=== PATIENT | male | born 1960 | race Caucasian/White ===

== ENCOUNTER 2021-07-08 11:59 | Observation (INO) ==
[2021-07-08 12:10] VITALS: BMI 28.6
--- NOTE | 2021-07-08 13:04 | DR.ABDMALE ---
HPI Time seen Time Seen by Provider: 07/08/21 13:00 PCP Primary Care Physician: GALINA GARCIA Complaint Chief Complaint Doctors Comments: 60 y/o male presents with frequent vomitng. Has a h/o gastroparesis over the past 3 years. Started with N/V 2 days ago. Unable to keep even water down. Denies abdominal pain. Has had slight diarrhea. No fever, but is having chills. Denies cough, chest pain, abdominal pain. Went to another ER last pm. Received IV fluids, was d/c'd. Pt not feeling better this am. + persistent vomiting. Feels abdomen sore from vomiting. Pt unable to take his routine meds. Chief Complaint:: PT REPORTS N/V/D , PT HAS HX OF GASTROPORESIS, PT SEEN IN ER AT [facility] IN [place] PT RECIEVED IVFS, AND OLEG ALSO PT REPORTS SORENESS TO HIS ABD, PT REPORTS NOT BEING ABLE TO HOLD ANYTHING , ( 20 TIMES ) . Self Treatment fo Chief Complaint: DANILO DEJESUS COVID-19 Coronavirus risk:travel/contact w/high risk person: No Has patient experienced Coronavirus symptoms: No Reviewed Nurses Notes Review: Yes Source History provided by:: Patient Mode of arrival Mode of Arrival: Ambulatory Timing Onset of Chief Complaint: 07/07/21 Came on: Gradually PMH PMH Past Medical History: Yes Past Medical History: Arthritis, Diabetes and Hypertension Past Surgical History: Yes Surgical History: Cholecystectomy Family History History of Family Medical Conditions: Yes Family Medical History: Cancer and Hypertension Social History Does patient currently use any type of tobacco product: No Have you used tobacco products in the last 12 months: No Type of Tobacco Use: None Does any household member use tobacco: No Alcohol Use: None Do you use any recreational Drugs:: No Lives With: Family Lives Where: Home Travel Risk Coronavirus risk:travel/contact w/high risk person: No Has patient experienced Coronavirus symptoms: No Infectious screening In the last 2 months have you had wt loss of >10#?: NO Have you had fever, night sweats or hemotysis?: No Have you traveled outside the country in the last 6 months?: No Isolation: Standard ROS Review of Systems Constitutional: Malaise, Weakness and Fatigue Eyes: No Symptoms Reported ENTM: No Symptoms Reported Respiratoy: No Symptoms Reported Cardiovascular: No Symptoms Reported Gastrointestinal/Abdominal: Abdominal Pain, Nausea and Vomiting Genitourinary: No Symptoms Reported Neurological: Headache and Weakness Musculoskeletal: No Symptoms Reported Integumentary: No Symptoms Reported Hematologic/Lymphatic: No Symptoms Reported Psychiatric: No Symptoms Reported All Other Systems: Reviewed and Negative PE Vital Signs Vital Signs: Temp Pulse Resp BP BP Pulse Ox 07/08/21 20:15 82 97 07/08/21 20:00 85 160/80 97 07/08/21 19:45 76 96 07/08/21 19:40 83 157/71 95 07/08/21 19:30 80 96 07/08/21 19:20 81 145/65 95 07/08/21 19:15 81 95 07/08/21 19:00 78 147/67 96 07/08/21 18:45 83 95 07/08/21 18:40 85 165/73 94 L 07/08/21 18:30 88 94 L 07/08/21 18:25 20 07/08/21 18:20 91 H 213/98 98 07/08/21 18:15 88 98 07/08/21 18:00 98 H 212/98 100 07/08/21 17:45 96 H 99 07/08/21 17:40 94 H 196/85 100 07/08/21 17:30 89 96 07/08/21 17:20 85 202/95 96 07/08/21 17:15 82 96 07/08/21 17:08 91 H 209/100 94 L 07/08/21 17:00 92 H 97 07/08/21 16:45 86 98 07/08/21 16:30 78 96 07/08/21 16:20 76 160/73 96 07/08/21 16:15 79 96 07/08/21 16:00 79 198/93 93 L 07/08/21 15:45 93 H 99 07/08/21 15:40 89 218/112 99 07/08/21 15:38 22 07/08/21 15:30 88 100 07/08/21 15:28 93 H 224/109 100 07/08/21 15:15 87 99 07/08/21 15:00 92 H 100 07/08/21 14:45 95 H 100 07/08/21 14:41 98 H 99 07/08/21 14:21 78 175/79 98 07/08/21 14:15 79 98 07/08/21 14:01 82 193/90 96 07/08/21 14:00 84 96 07/08/21 13:45 82 93 L 07/08/21 13:40 81 213/103 98 07/08/21 13:30 81 96 07/08/21 13:27 85 212/99 94 L 07/08/21 13:16 84 222/127 98 07/08/21 12:01 97.6 F 93 H 20 165/90 97 03/28/16 10:17 156/80 General Limitations: No Limitations General Appearance: Alert and In Distress Head Head Exam: Normal Inspection, Atraumatic and Normocephalic Eyes Eye exam: Normal Appearance, PERRL and EOMI ENT ENT Exam: Normal Exam and Mucous Membranes Moist Neck Neck Exam: Normal Inspection and Full ROM; negative Tenderness Chest Chest Inspection: Normal Inspection Respiratory Respiratory Exam: Normal Lung Sounds Bilat; negative Accessory Muscle Use and Re spiratory Distress Respiratory Exam: Bilateral: Clear to Auscultation Cardiovascular Cardiovascular Exam: Regular Rate, Normal Rhythm and Normal Heart Sounds Abdominal Exam Abdominal Exam: Normal Inspection, Normal Bowel Sounds, Soft and Tenderness (across upper abdomen, no guarding or rebound. ) Back Back Exam: Normal Inspection Extremeties Extremities Exam: Normal Inspection and Full ROM; negative Tenderness and Edema Neurologic Neurological Exam: Alert, Oriented X3 and CN II-XII Intact; negative Motor Sensory Deficit Psychiatric Psychiatric Exam: Normal Affect Skin Skin Exam: Warm and Dry MDM Differential Diagnosis Differential Diagnosis: Gastritus/PUD, Gastroenteritis and Pancreatitis Other differential diagnosis: gastroparesis COURSE Treatment Treatment: 60 y/o male presents with intractable vomiting. Has a h/o gastroparesis over te past few years. W/u initiated. Pt given IV fluids, IV zofran/protonix. Labs overall acceptable. CT of the abd/pelvis obtained, with IV contrast. No acute abdominal abnormalities. Pt with persistent nausea, worsening headache. Given adidtional IV meds. Pt's BP increasing, given IV hydralazine, after no help with IV labetalol. 1914 - nausea not as bad, still with headache. Given IV dilaudid with good repsponse of BP. Recommend observation admission in view of his nausea, vomitng and difficult to control BP. Discussed with the covering hospitalist, Dr Chopra. ROR Labs Reviewed Laboratory Results Reviewed?: Yes Result Diagrams: 07/08/21 13:19 07/08/21 13:19 Laboratory: WBC 10.0 X10^3/uL (3.6-10.0) 07/08/21 13:19 RBC 4.64 X10^6/uL (4.7-6.0) L 07/08/21 13:19 Hgb 14.1 g/dL (13.5-18.0) 07/08/21 13:19 Hct 40.4 % (42.0-54.0) L 07/08/21 13:19 MCV 87.1 fL (80.0-100.0) 07/08/21 13:19 MCH 30.4 pg (27.0-34.0) 07/08/21 13:19 MCHC 34.9 g/dL (33.0-35.0) 07/08/21 13:19 RDW 13.5 % (11.6-16.5) 07/08/21 13:19 Plt Count 165 X10^3/uL (150.0-450.0) 07/08/21 13:19 MPV 7.5 fL (7.4-11.0) 07/08/21 13:19 Neut % (Auto) 83.7 % (42.0-75.0) H 07/08/21 13:19 Lymph % (Auto) 8.8 % (21.0-51.0) L 07/08/21 13:19 [place] % (Auto) 7.0 % (0.0-13.0) 07/08/21 13:19 Eos % (Auto) 0.1 % (0.9-2.9) L 07/08/21 13:19 Baso % (Auto) 0.4 % (0.2-1.0) 07/08/21 13:19 Neut # (Auto) 8.4 x10^3/uL (2.2-4.8) H 07/08/21 13:19 Lymph # (Auto) 0.9 X10^3/uL (1.3-2.9) L 07/08/21 13:19 [place] # (Auto) 0.7 x10^3/uL (0.3-0.8) 07/08/21 13:19 Eos # (Auto) 0.0 x10^3/uL (0.0-0.2) 07/08/21 13:19 Baso # (Auto) 0.0 X10^3/uL (0.0-0.1) 07/08/21 13:19 Absolute Nucleated RBC 0.0 /100WBC 07/08/21 13:19 Sodium 139 mmol/L (136-145) 07/08/21 13:19 Corrected Sodium 143 mmol/L (136-145) 07/08/21 13:19 Potassium 3.5 mmol/L (3.5-5.1) 07/08/21 13:19 Chloride 100 mmol/L (98-107) 07/08/21 13:19 Carbon Dioxide 27.7 mmol/L (21-32) 07/08/21 13:19 BUN 17 mg/dL (7-18) 07/08/21 13:19 Creatinine 1.22 mg/dL (0.70-1.30) 07/08/21 13:19 Est GFR (MDRD) Af Amer > 60 (>60) 07/08/21 13:19 Est GFR (MDRD) Non-Af > 60 (>60) 07/08/21 13:19 Glucose 257 mg/dL (65-99) H 07/08/21 13:19 Calcium 8.4 mg/dL (8.5-10.1) L 07/08/21 13:19 Corrected Calcium TNP 07/08/21 13:19 Total Bilirubin 0.90 mg/dL (0.2-1.0) 07/08/21 13:19 AST 25 Units/L (15-37) 07/08/21 13:19 ALT 23 Units/L (12-78) 07/08/21 13:19 Alkaline Phosphatase 52 Units/L (46-116) 07/08/21 13:19 Total Protein 7.9 g/dL (6.4-8.2) 07/08/21 13:19 Albumin 4.3 g/dL (3.4-5.0) 07/08/21 13:19 Globulin 3.6 g/dL (2.5-4.5) 07/08/21 13:19 Albumin/Globulin Ratio 1.2 Ratio (1.1-2.1) 07/08/21 13:19 Lipase 45 Units/L (73-393) L 07/08/21 13:19 Specimen Type Random urine 07/08/21 15:37 Urine Color Yellow (YELLOW) 07/08/21 15:37 Urine Appearance Clear (CLEAR) 07/08/21 15:37 Urine pH 6.0 (5.0 - 8.0) 07/08/21 15:37 Ur Specific [place] 1.015 (1.000-1.030) 07/08/21 15:37 Urine Protein 3+ (NEGATIVE) 07/08/21 15:37 Urine Glucose (UA) 4+ (NEGATIVE) 07/08/21 15:37 Urine Ketones 2+ (NEGATIVE) 07/08/21 15:37 Urine Occult Blood 4+ (NEGATIVE) 07/08/21 15:37 Urine Nitrite Negative (NEGATIVE) 07/08/21 15:37 Urine Bilirubin Negative (NEGATIVE) 07/08/21 15:37 Urine Urobilinogen Normal (NORMAL) 07/08/21 15:37 Ur Leukocyte Esterase Negative (NEGATIVE) 07/08/21 15:37 Urine RBC 0-2 /HPF (0-3) 07/08/21 15:37 Urine WBC 0-2 /HPF (0-5) 07/08/21 15:37 Ur Squamous Epith Cells Negative /HPF (NEGATIVE) 07/08/21 15:37 Urine Bacteria Negative /HPF (NEGATIVE) 07/08/21 15:37 Ur Culture Indicated? No/not indicated 07/08/21 15:37 SARS CoV-2 RNA Rapid CHANCE Negative (NEGATIVE) 07/08/21 15:49 Other Results Comments: Labs overall acceptable. XRAY XRAY Interpreted by: Radiologist X-ray Results: CT of abd/pelvis without acute abnormalities. Opioid Opioid Risk Tool Age (Good box if 16-45): No History of Preadolescent Sexual Abuse: No Total: 0 Total Score Risk Category: Low Risk Copyright: Didier LAY predicting aberrant behaviors Diagnosis Discharge Problem: Intractable vomiting Hypertension Qualifiers: Hypertension type: unspecified Qualified Code(s): I10 - Essential (primary) hypertension
[2021-07-08] MEDS ORDERED: ZOFRAN INJ 4 MG VIAL IVP ONE ×2 (13:15→15:26)
[2021-07-08] MEDS ORDERED: NS 1,000 ML IV 1,000 ML IV ONE ×2 (13:15→16:19)
[2021-07-08] MEDS ORDERED: PROTONIX INJ 40 MG VIAL IVP ONE (13:15)
[2021-07-08] MEDS ORDERED: PROTONIX INJ 40 MG VIAL ONE (13:18)
[2021-07-08] MEDS ORDERED: NS 1,000 ML IV 1,000 ML ONE (13:19)
[2021-07-08] MEDS ORDERED: ZOFRAN INJ 4 MG VIAL ONE ×2 (13:19→15:32)
[2021-07-08] MEDS ORDERED: NORMODYNE INJ 20 MG VIAL IVP ONE (13:21)
[2021-07-08] MEDS ORDERED: NORMODYNE INJ 20 MG VIAL ONE (13:24)
[2021-07-08 13:26] LABS: BASOPHILS % (AUTO) 0.4 % (0.2-1.0); EOSINOPHILS % (AUTO) 0.1 % (0.9-2.9); HEMATOCRIT 40.4 % (42.0-54.0); HEMOGLOBIN 14.1 g/dL (13.5-18.0); LYMPHOCYTES # (AUTO) 0.9 X10^3/uL (1.3-2.9); LYMPHOCYTES % (AUTO) 8.8 % (21.0-51.0); MEAN CORPUSCULAR HEMOGLOBIN 30.4 pg (27.0-34.0); MEAN CORPUSCULAR HGB CONC 34.9 g/dL (33.0-35.0); MEAN CORPUSCULAR VOLUME 87.1 fL (80.0-100.0); MEAN PLATELET VOLUME 7.5 fL (7.4-11.0); MONOCYTES # (AUTO) 0.7 x10^3/uL (0.3-0.8); NEUTROPHILS # (AUTO) 8.4 x10^3/uL (2.2-4.8); NEUTROPHILS % (AUTO) 83.7 % (42.0-75.0); RED BLOOD COUNT 4.64 X10^6/uL (4.7-6.0); RED CELL DISTRIBUTION WIDTH 13.5 % (11.6-16.5)
[2021-07-08 13:37] LABS: ALANINE AMINOTRANSFERASE 23 Units/L (12-78); ALBUMIN 4.3 g/dL (3.4-5.0); ALKALINE PHOSPHATASE 52 Units/L (46-116); ASPARTATE AMINO TRANSFERASE 25 Units/L (15-37); BLOOD UREA NITROGEN 17 mg/dL (7-18); CALCIUM 8.4 mg/dL (8.5-10.1); CARBON DIOXIDE 27.7 mmol/L (21-32); CHLORIDE 100 mmol/L (98-107); COR NA(FOR HYPERGLY) 143 mmol/L (136-145); CREATININE 1.22 mg/dL (0.70-1.30); LIPASE 45 Units/L (73-393); SODIUM 139 mmol/L (136-145); TOTAL PROTEIN 7.9 g/dL (6.4-8.2); eGFR NON BLACK RACES > 60 (>60)
--- NOTE | 2021-07-08 15:23 | CT ---
HISTORYABDOMINAL PAIN, VOMITING, IV CONTRAST ONLYSTUDYABDOMEN/PELVIS WITH CONCOMPARISONNoneTECHNIQUEAxial CT images of the abdomen and pelvis were obtained after the administration of IV contrast, 100 mL Omnipaque 350, and reformatted into coronal and sagittal planes for further evaluation.Radiation dose: 729.90 mGy-cm total DLPFINDINGSLung bases are clear.Stomach appears normal.Solid visceral organs of the upper abdomen are unremarkable.Status post cholecystectomy.Nonobstructing lower pole right nephrolith.Otherwise, unremarkable appearance of the kidneys and ureters.Unremarkable appearance of the urinary bladder.Imaged reproductive structures are unremarkable.Unremarkable appearance of the large and small bowel.No evidence of acute appendicitis.No pneumoperitoneum.No significant fluid collection.No adenopathy.No acute osseous abnormality.IMPRESSION1. No acute intra-abdominal abnormality detected.2. Nonobstructing right nephrolith.Electronically signed by: Darrel Nunez (Jul 08, 2021 15:22:28)
[2021-07-08] MEDS ORDERED: MORPHINE SULFATE INJ 4 MG IVP ONE (15:26)
[2021-07-08] MEDS ORDERED: MORPHINE SULFATE INJ 4 MG ONE (15:32)
[2021-07-08 16:07] LABS: BILIRUBIN,URINE NEGATIVE (NEGATIVE); BLOOD/HEMOGLOBIN,URINE 4+ (NEGATIVE); GLUCOSE, URINE 4+ (NEGATIVE); KETONES,URINE 2+ (NEGATIVE); LEUKOCYTE ESTERASE ,URINE NEGATIVE (NEGATIVE); NITRITES,URINE NEGATIVE (NEGATIVE); PROTEIN,URINE 3+ (NEGATIVE); UROBILINOGEN,URINE NORMAL (NORMAL)
[2021-07-08 16:24] LABS: APPEARANCE,URINE CLEAR (CLEAR); COLOR,URINE YELLOW (YELLOW); RBC,URINE 0-2 /HPF (0-3)
[2021-07-08 16:25] LABS: BACTERIA,URINE NEGATIVE /HPF (NEGATIVE); SQUAMOUS EPITHELIAL CELL,UR NEGATIVE /HPF (NEGATIVE)
[2021-07-08] MEDS ORDERED: APRESOLINE INJ 20 MG VIAL IVP ONE (17:12)
[2021-07-08] MEDS ORDERED: APRESOLINE INJ 20 MG VIAL ONE (17:25)
[2021-07-08] MEDS ORDERED: DILAUDID INJ IVP ONE (18:08)
[2021-07-08] MEDS ORDERED: DILAUDID INJ ONE (18:20)
[2021-07-08] MEDS: LOPRESSOR TAB 25 MG PO SCH (21:48)
[2021-07-08] MEDS: NS 1,000 ML IV 1,000 ML IV SCH (21:48)
[2021-07-08] MEDS: ZOFRAN INJ 4 MG VIAL IVP PRN (21:50)
[2021-07-08] MEDS: DILAUDID INJ IVP PRN (21:56)
[2021-07-09] MEDS: PHENERGAN INJ 25 MG IM PRN ×4 (01:33→22:32)
[2021-07-09] MEDS: DILAUDID INJ IVP PRN ×4 (02:25→20:11)
[2021-07-09] MEDS: ZOFRAN INJ 4 MG VIAL IVP PRN (04:21)
[2021-07-09 06:49] LABS: BASOPHILS % (AUTO) 0.4 % (0.2-1.0); HEMATOCRIT 40.2 % (42.0-54.0); HEMOGLOBIN 14.3 g/dL (13.5-18.0); LYMPHOCYTES # (AUTO) 1.4 X10^3/uL (1.3-2.9); LYMPHOCYTES % (AUTO) 12.6 % (21.0-51.0); MEAN CORPUSCULAR HEMOGLOBIN 30.7 pg (27.0-34.0); MEAN CORPUSCULAR HGB CONC 35.5 g/dL (33.0-35.0); MEAN CORPUSCULAR VOLUME 86.4 fL (80.0-100.0); MEAN PLATELET VOLUME 7.5 fL (7.4-11.0); MONOCYTES # (AUTO) 0.7 x10^3/uL (0.3-0.8); MONOCYTES % (AUTO) 6.7 % (0.0-13.0); NEUTROPHILS # (AUTO) 8.6 x10^3/uL (2.2-4.8); NEUTROPHILS % (AUTO) 80.3 % (42.0-75.0); RED BLOOD COUNT 4.65 X10^6/uL (4.7-6.0); RED CELL DISTRIBUTION WIDTH 13.5 % (11.6-16.5); WHITE BLOOD COUNT 10.8 X10^3/uL (3.6-10.0)
[2021-07-09 07:13] LABS: ALANINE AMINOTRANSFERASE 24 Units/L (12-78); ALKALINE PHOSPHATASE 49 Units/L (46-116); ASPARTATE AMINO TRANSFERASE 31 Units/L (15-37); BLOOD UREA NITROGEN 13 mg/dL (7-18); CALCIUM 8.4 mg/dL (8.5-10.1); CARBON DIOXIDE 25.5 mmol/L (21-32); CHLORIDE 102 mmol/L (98-107); COR NA(FOR HYPERGLY) 140 mmol/L (136-145); CREATININE 0.97 mg/dL (0.70-1.30); MAGNESIUM 2.1 mg/dL (1.7-2.9); SODIUM 138 mmol/L (136-145); TOTAL PROTEIN 7.5 g/dL (6.4-8.2); eGFR NON BLACK RACES > 60 (>60)
[2021-07-09] MEDS: NORVASC TAB 10 MG PO SCH (08:20)
[2021-07-09] MEDS: CATAPRES TAB 0.2 MG PO SCH (08:21)
[2021-07-09] MEDS: LOPRESSOR TAB 25 MG PO SCH ×2 (08:21→20:32)
[2021-07-09] MEDS ORDERED: PROTONIX TAB 40 MG PO SCH (09:00)
[2021-07-09] MEDS: NS 1,000 ML IV 1,000 ML IV SCH ×3 (09:54→23:22)
--- NOTE | 2021-07-09 16:32 | DR.H&P ---
H&P - History & Physical for Day of: H&P Date: 07/08/21 - Chief Complaint Chief Complaint: N/V abdominal pain - History of Present Illness History of Present Illness: Patient is a 60 year old WM who is being admitted due to gastroparesis. Patient reports a PMH of gastroparesis; states he follows up with Dr. Landa in [place] (GI) regarding gastroparesis. States he went to [place] ER 2 days ago with similar issues and was discharged home however reports no improvement in symptoms. PMH DM, HTN, gastroparesis. PCP in [place] - Past Medical History Past Medical History: Hypertension, Diabetes, Arthritis - Past Surgical History Surgical History: Cholecystectomy - Family History Family Medical History: Diabetes Mellitus, Cancer, Hypertension - Social History Does patient currently use any type of tobacco product: No Have you used tobacco products in the last 12 months: No Type of Tobacco Use: None Does any household member use tobacco: No Alcohol Use: None Drug Use: None - Medications Home Medications: No Known Drug Allergies Allergy (Verified 07/08/21 14:33) CONTINUE taking the following medications amlodipine 10 mg PO DAILY 07/08/21 [History] clonidine HCl 0.2 mg PO DAILY 07/08/21 [History] insulin glargine [Lantus Solostar U-100 Insulin] 20 unit SUBCUT HS 07/08/21 [History] lactobacillus combination no.8 [Adult Probiotic] 3 cell PO DAILY 07/08/21 [History] magnesium oxide [MagOx] 400 mg PO BID 07/08/21 [History] metoclopramide HCl [Gimoti] 15 mg INTRANASAL PRN PRN 07/08/21 [History] metoprolol tartrate 25 mg PO BID 07/08/21 [History] ondansetron HCl [Zofran] 4 mg PO TID PRN 07/08/21 [History] pantoprazole 40 mg PO DAILY 07/08/21 [History] potassium chloride 20 meq PO DAILY 07/08/21 [History] - Review of Systems Constitutional: See HPI Eyes: See HPI ENT: See HPI Respiratory: See HPI Cardiovascular: See HPI Gastrointestinal: See HPI Genitourinary: See HPI Musculoskeletal: See HPI Skin: See HPI Neurological: See HPI - Physical Exam Vital Signs: Temperature 99.9 F Pulse Rate [Brachial] 73 Pulse Rate 80 Respiratory Rate 20 Blood Pressure [Left Arm] 139/75 Blood Pressure 156/75 O2 Sat by Pulse Oximetry 95 Oriented: Normal, Time, Person, Place Eyes: Normal Ear: Normal Nose: Normal Throat: Normal Respiratory: Clear Throughout Cardiovascular: Normal : Normal Auscultation: Bowel Sounds: Normal Palpation: Normal Tenderness: Diffuse, Moderate Skin: Normal Musculoskeletal: Normal Psychiatric: Normal Mood Description: Calm Affect: Normal Speech Pattern: Clear, Appropriate - Assessment/Plan (1) Gastroparesis Status: Acute Plan: Admit. IV hydration. IV protonix. Repeat labs in am. NPO (2) Hypokalemia Status: Acute (3) Abdominal pain Status: Acute (4) Intractable vomiting Status: Acute (5) Hypertension Qualifiers: Hypertension type: unspecified Qualified Code(s): I10 - Essential (primary) hypertension Status: Acute - Allergies Allergies/Adverse Reactions: Allergies Allergy/AdvReac Type Severity Reaction Status Date / Time No Known Drug Allergies Allergy Verified 07/08/21 14:33
--- NOTE | 2021-07-09 16:33 | PCM.PROG ---
Progress Note - Subjective Subjective: Patient was admitted due to acute gastroparesis. Patient reports minimal improvement in symptoms. States he has vomitted once today. Reports pain improved. No other concerns at present. - Past Medical Family Social History Past Med/Fam/Surg Hx: No changes since H&P Allergies: Allergies No Known Drug Allergies Allergy (Verified 07/08/21 14:33) - Review of Systems ROS: No change since H&P - Vital Signs and I&O's Vital Signs: Temperature 99.9 F Pulse Rate [Brachial] 73 Pulse Rate 80 Respiratory Rate 20 Blood Pressure [Left Arm] 139/75 Blood Pressure 156/75 O2 Sat by Pulse Oximetry 95 Intake and Output: Intake & Output 07/06/21 07/07/21 07/08/21 07/09/21 23:59 23:59 23:59 23:59 Intake Total 300 / 300 438 / 438 Output Total 700 / 700 200 / 200 Balance -400 / -400 238 / 238 - Physical Exam Oriented: Normal, Time, Person, Place Eyes: Normal Ear: Normal Nose: Normal Throat: Normal Respiratory: Normal Cardiovascular: Normal : Normal Auscultation: Bowel Sounds: Normal Palpation: Normal Tenderness: Diffuse, Moderate Skin: Normal Musculoskeletal: Normal Psychiatric: Normal Mood Description: Calm Affect: Normal Speech Pattern: Clear, Appropriate - Laboratory and Diagnostics Result Diagrams: 07/09/21 06:25 07/09/21 06:25 Labs: Laboratory WBC 10.8 X10^3/uL (3.6-10.0) H 07/09/21 06:25 RBC 4.65 X10^6/uL (4.7-6.0) L 07/09/21 06:25 Hgb 14.3 g/dL (13.5-18.0) 07/09/21 06:25 Hct 40.2 % (42.0-54.0) L 07/09/21 06:25 MCV 86.4 fL (80.0-100.0) 07/09/21 06:25 MCH 30.7 pg (27.0-34.0) 07/09/21 06:25 MCHC 35.5 g/dL (33.0-35.0) H 07/09/21 06:25 RDW 13.5 % (11.6-16.5) 07/09/21 06:25 Plt Count 175 X10^3/uL (150.0-450.0) 07/09/21 06:25 MPV 7.5 fL (7.4-11.0) 07/09/21 06:25 Neut % (Auto) 80.3 % (42.0-75.0) H 07/09/21 06:25 Lymph % (Auto) 12.6 % (21.0-51.0) L 07/09/21 06:25 [place] % (Auto) 6.7 % (0.0-13.0) 07/09/21 06:25 Eos % (Auto) 0.0 % (0.9-2.9) L 07/09/21 06:25 Baso % (Auto) 0.4 % (0.2-1.0) 07/09/21 06:25 Neut # (Auto) 8.6 x10^3/uL (2.2-4.8) H 07/09/21 06:25 Lymph # (Auto) 1.4 X10^3/uL (1.3-2.9) 07/09/21 06:25 [place] # (Auto) 0.7 x10^3/uL (0.3-0.8) 07/09/21 06:25 Eos # (Auto) 0.0 x10^3/uL (0.0-0.2) 07/09/21 06:25 Baso # (Auto) 0.0 X10^3/uL (0.0-0.1) 07/09/21 06:25 Absolute Nucleated RBC 0.0 /100WBC 07/09/21 06:25 Sodium 138 mmol/L (136-145) 07/09/21 06:25 Corrected Sodium 140 mmol/L (136-145) 07/09/21 06:25 Potassium 3.7 mmol/L (3.5-5.1) 07/09/21 06:25 Chloride 102 mmol/L (98-107) 07/09/21 06:25 Carbon Dioxide 25.5 mmol/L (21-32) 07/09/21 06:25 BUN 13 mg/dL (7-18) 07/09/21 06:25 Creatinine 0.97 mg/dL (0.70-1.30) 07/09/21 06:25 Est GFR (MDRD) Af Amer > 60 (>60) 07/09/21 06:25 Est GFR (MDRD) Non-Af > 60 (>60) 07/09/21 06:25 Glucose 196 mg/dL (65-99) H 07/09/21 06:25 POC Glucose (mg/dL) 175 mg/dL (65-99) H 07/09/21 15:55 Calcium 8.4 mg/dL (8.5-10.1) L 07/09/21 06:25 Corrected Calcium TNP 07/09/21 06:25 Magnesium 2.1 mg/dL (1.7-2.9) 07/09/21 06:25 Total Bilirubin 0.70 mg/dL (0.2-1.0) 07/09/21 06:25 AST 31 Units/L (15-37) 07/09/21 06:25 ALT 24 Units/L (12-78) 07/09/21 06:25 Alkaline Phosphatase 49 Units/L (46-116) 07/09/21 06:25 Total Protein 7.5 g/dL (6.4-8.2) 07/09/21 06:25 Albumin 4.0 g/dL (3.4-5.0) 07/09/21 06:25 Globulin 3.5 g/dL (2.5-4.5) 07/09/21 06:25 Albumin/Globulin Ratio 1.1 Ratio (1.1-2.1) 07/09/21 06:25 Lipase 45 Units/L (73-393) L 07/08/21 13:19 Specimen Type Random urine 07/08/21 15:37 Urine Color Yellow (YELLOW) 07/08/21 15:37 Urine Appearance Clear (CLEAR) 07/08/21 15:37 Urine pH 6.0 (5.0 - 8.0) 07/08/21 15:37 Ur Specific [place] 1.015 (1.000-1.030) 07/08/21 15:37 Urine Protein 3+ (NEGATIVE) 07/08/21 15:37 Urine Glucose (UA) 4+ (NEGATIVE) 07/08/21 15:37 Urine Ketones 2+ (NEGATIVE) 07/08/21 15:37 Urine Occult Blood 4+ (NEGATIVE) 07/08/21 15:37 Urine Nitrite Negative (NEGATIVE) 07/08/21 15:37 Urine Bilirubin Negative (NEGATIVE) 07/08/21 15:37 Urine Urobilinogen Normal (NORMAL) 07/08/21 15:37 Ur Leukocyte Esterase Negative (NEGATIVE) 07/08/21 15:37 Urine RBC 0-2 /HPF (0-3) 07/08/21 15:37 Urine WBC 0-2 /HPF (0-5) 07/08/21 15:37 Ur Squamous Epith Cells Negative /HPF (NEGATIVE) 07/08/21 15:37 Urine Bacteria Negative /HPF (NEGATIVE) 07/08/21 15:37 Ur Culture Indicated? No/not indicated 07/08/21 15:37 SARS CoV-2 RNA Rapid CHANCE Negative (NEGATIVE) 07/08/21 15:49 - Plan (1) Gastroparesis Status: Acute Plan: Admit. IV hydration. IV protonix. Repeat labs in am. Clear liquids (2) Hypokalemia Status: Acute (3) Abdominal pain Status: Acute (4) Intractable vomiting Status: Acute (5) Hypertension Status: Acute Qualifiers: Hypertension type: unspecified Qualified Code(s): I10 - Essential (primary) hypertension
[2021-07-10] MEDS: PHENERGAN INJ 25 MG IM PRN ×3 (04:09→16:00)
[2021-07-10] MEDS: DILAUDID INJ IVP PRN ×3 (04:12→21:15)
[2021-07-10 06:53] LABS: BASOPHILS % (AUTO) 0.3 % (0.2-1.0); EOSINOPHILS % (AUTO) 0.4 % (0.9-2.9); HEMATOCRIT 41.4 % (42.0-54.0); HEMOGLOBIN 14.4 g/dL (13.5-18.0); LYMPHOCYTES # (AUTO) 1.1 X10^3/uL (1.3-2.9); LYMPHOCYTES % (AUTO) 12.2 % (21.0-51.0); MEAN CORPUSCULAR HEMOGLOBIN 30.5 pg (27.0-34.0); MEAN CORPUSCULAR HGB CONC 34.9 g/dL (33.0-35.0); MEAN CORPUSCULAR VOLUME 87.5 fL (80.0-100.0); MEAN PLATELET VOLUME 7.9 fL (7.4-11.0); MONOCYTES # (AUTO) 0.6 x10^3/uL (0.3-0.8); MONOCYTES % (AUTO) 6.7 % (0.0-13.0); NEUTROPHILS # (AUTO) 7.1 x10^3/uL (2.2-4.8); NEUTROPHILS % (AUTO) 80.4 % (42.0-75.0); RED BLOOD COUNT 4.73 X10^6/uL (4.7-6.0); RED CELL DISTRIBUTION WIDTH 13.3 % (11.6-16.5); WHITE BLOOD COUNT 8.8 X10^3/uL (3.6-10.0)
[2021-07-10 07:16] LABS: ALANINE AMINOTRANSFERASE 22 Units/L (12-78); ALKALINE PHOSPHATASE 53 Units/L (46-116); AMYLASE 21 Units/L (25-115); ASPARTATE AMINO TRANSFERASE 26 Units/L (15-37); BLOOD UREA NITROGEN 16 mg/dL (7-18); CALCIUM 8.2 mg/dL (8.5-10.1); CHLORIDE 101 mmol/L (98-107); COR NA(FOR HYPERGLY) 140 mmol/L (136-145); CREATININE 0.94 mg/dL (0.70-1.30); LIPASE 54 Units/L (73-393); SODIUM 138 mmol/L (136-145); TOTAL PROTEIN 7.5 g/dL (6.4-8.2); eGFR NON BLACK RACES > 60 (>60)
[2021-07-10] MEDS: ZOFRAN INJ 4 MG VIAL IVP PRN (07:30)
[2021-07-10] MEDS ORDERED: PROTONIX INJ 40 MG VIAL IVP SCH (09:00)
[2021-07-10] MEDS: NORVASC TAB 10 MG PO SCH (09:23)
[2021-07-10] MEDS: LOPRESSOR TAB 25 MG PO SCH ×2 (09:24→21:15)
[2021-07-10] MEDS: CATAPRES TAB 0.2 MG PO SCH (09:24)
[2021-07-10] MEDS: NS 1,000 ML IV 1,000 ML IV SCH ×2 (09:26→11:38)
[2021-07-10] MEDS: REGLAN INJ 10 MG VIAL IVP SCH ×2 (16:00→21:13)
[2021-07-10] MEDS: PROTONIX INJ 40 MG VIAL IVP SCH (21:14)
[2021-07-10] MEDS ORDERED: POTASSIUM CHLORIDE LIQ 20 MEQ UDC PO PRN (22:08)
[2021-07-10] MEDS ORDERED: POTASSIUM CHL 40 MEQ/NS 0.45% 500 ML IV PRN (22:08)
[2021-07-10] MEDS ORDERED: POTASSIUM CHL 60 MEQ/NS 0.45% 500 ML IV PRN (22:08)
[2021-07-10] MEDS ORDERED: KLOR-CON PO PRN (22:08)
[2021-07-10] MEDS ORDERED: K-DUR TAB 20 MEQ PO PRN (22:08)
[2021-07-10] MEDS ORDERED: MICRO K EXTEN CAP 10 MEQ PO PRN (22:08)
[2021-07-10] MEDS ORDERED: K-RIDER 10 MEQ/NS 100 ML 10 MEQ/100 ML BAG IV PRN (22:08)
[2021-07-11] MEDS: REGLAN INJ 10 MG VIAL IVP SCH ×3 (00:32→11:06)
[2021-07-11] MEDS: NS 1,000 ML IV 1,000 ML IV SCH ×3 (00:39→13:28)
[2021-07-11 06:59] LABS: BASOPHILS % (AUTO) 0.3 % (0.2-1.0); EOSINOPHILS # (AUTO) 0.1 x10^3/uL (0.0-0.2); EOSINOPHILS % (AUTO) 0.8 % (0.9-2.9); HEMATOCRIT 39.7 % (42.0-54.0); HEMOGLOBIN 13.7 g/dL (13.5-18.0); LYMPHOCYTES # (AUTO) 1.4 X10^3/uL (1.3-2.9); LYMPHOCYTES % (AUTO) 19.3 % (21.0-51.0); MEAN CORPUSCULAR HEMOGLOBIN 30.3 pg (27.0-34.0); MEAN CORPUSCULAR HGB CONC 34.6 g/dL (33.0-35.0); MEAN CORPUSCULAR VOLUME 87.7 fL (80.0-100.0); MEAN PLATELET VOLUME 7.7 fL (7.4-11.0); MONOCYTES # (AUTO) 0.6 x10^3/uL (0.3-0.8); MONOCYTES % (AUTO) 8.2 % (0.0-13.0); NEUTROPHILS # (AUTO) 5.1 x10^3/uL (2.2-4.8); NEUTROPHILS % (AUTO) 71.4 % (42.0-75.0); RED BLOOD COUNT 4.53 X10^6/uL (4.7-6.0); WHITE BLOOD COUNT 7.1 X10^3/uL (3.6-10.0)
[2021-07-11 07:11] LABS: ALANINE AMINOTRANSFERASE 26 Units/L (12-78); ALBUMIN 3.6 g/dL (3.4-5.0); ALKALINE PHOSPHATASE 45 Units/L (46-116); ASPARTATE AMINO TRANSFERASE 23 Units/L (15-37); BLOOD UREA NITROGEN 15 mg/dL (7-18); CALCIUM 8.3 mg/dL (8.5-10.1); CARBON DIOXIDE 29.5 mmol/L (21-32); CHLORIDE 104 mmol/L (98-107); COR NA(FOR HYPERGLY) 141 mmol/L (136-145); CREATININE 0.98 mg/dL (0.70-1.30); SODIUM 139 mmol/L (136-145); TOTAL PROTEIN 6.8 g/dL (6.4-8.2); eGFR NON BLACK RACES > 60 (>60)
[2021-07-11] MEDS: DILAUDID INJ IVP PRN (07:43)
[2021-07-11] MEDS: ZOFRAN INJ 4 MG VIAL IVP PRN ×2 (07:44→13:07)
[2021-07-11] MEDS: PROTONIX INJ 40 MG VIAL IVP SCH (08:16)
[2021-07-11] MEDS: PHENERGAN INJ 25 MG IM PRN (08:56)
[2021-07-11] MEDS: CATAPRES TAB 0.2 MG PO SCH (11:05)
[2021-07-11] MEDS: LOPRESSOR TAB 25 MG PO SCH (11:06)
[2021-07-11] MEDS: NORVASC TAB 10 MG PO SCH (11:06)
--- NOTE | 2021-07-11 11:08 | PCM.PROG ---
Progress Note - Progress Note for Day of Date of Exam: 07/10/21 - Subjective Subjective: Patient was admitted due to acute gastroparesis. Patient reports minimal improvement in symptoms. Patient continues to have vomiting; vomitted once this am. Reports pain improved. No other concerns at present. Will progress diet, plan for d/c in am - Past Medical Family Social History Past Med/Fam/Surg Hx: No changes since H&P Allergies: Allergies No Known Drug Allergies Allergy (Verified 07/08/21 14:33) - Review of Systems ROS: No change since H&P - Vital Signs and I&O's Vital Signs: Temperature 97.6 F Pulse Rate [Brachial] 87 Pulse Rate 80 Respiratory Rate 20 Blood Pressure [Left Arm] 195/92 Blood Pressure 156/75 O2 Sat by Pulse Oximetry 90 Intake and Output: Intake & Output 07/08/21 07/09/21 07/10/21 07/11/21 23:59 23:59 23:59 23:59 Intake Total 300 / 300 2244 / 2244 1614 / 1614 1100 / 1100 Output Total 700 / 700 200 / 200 1050 / 1050 Balance -400 / -400 2044 / 2044 564 / 564 1100 / 1100 - Physical Exam Oriented: Normal, Time, Person, Place Eyes: Normal Ear: Normal Nose: Normal Throat: Normal Respiratory: Normal Cardiovascular: Normal : Normal Auscultation: Bowel Sounds: Normal Tenderness: Diffuse, Moderate Skin: Normal Musculoskeletal: Normal Psychiatric: Normal Mood Description: Calm Affect: Normal Speech Pattern: Clear, Appropriate - Laboratory and Diagnostics Result Diagrams: 07/11/21 05:25 07/11/21 05:25 Labs: Laboratory WBC 7.1 X10^3/uL (3.6-10.0) 07/11/21 05:25 RBC 4.53 X10^6/uL (4.7-6.0) L 07/11/21 05:25 Hgb 13.7 g/dL (13.5-18.0) 07/11/21 05:25 Hct 39.7 % (42.0-54.0) L 07/11/21 05:25 MCV 87.7 fL (80.0-100.0) 07/11/21 05:25 MCH 30.3 pg (27.0-34.0) 07/11/21 05:25 MCHC 34.6 g/dL (33.0-35.0) 07/11/21 05:25 RDW 13.0 % (11.6-16.5) 07/11/21 05:25 Plt Count 176 X10^3/uL (150.0-450.0) 07/11/21 05:25 MPV 7.7 fL (7.4-11.0) 07/11/21 05:25 Neut % (Auto) 71.4 % (42.0-75.0) 07/11/21 05:25 Lymph % (Auto) 19.3 % (21.0-51.0) L 07/11/21 05:25 [place] % (Auto) 8.2 % (0.0-13.0) 07/11/21 05:25 Eos % (Auto) 0.8 % (0.9-2.9) L 07/11/21 05:25 Baso % (Auto) 0.3 % (0.2-1.0) 07/11/21 05:25 Neut # (Auto) 5.1 x10^3/uL (2.2-4.8) H 07/11/21 05:25 Lymph # (Auto) 1.4 X10^3/uL (1.3-2.9) 07/11/21 05:25 [place] # (Auto) 0.6 x10^3/uL (0.3-0.8) 07/11/21 05:25 Eos # (Auto) 0.1 x10^3/uL (0.0-0.2) 07/11/21 05:25 Baso # (Auto) 0.0 X10^3/uL (0.0-0.1) 07/11/21 05:25 Absolute Nucleated RBC 0.0 /100WBC 07/11/21 05:25 Sodium 139 mmol/L (136-145) 07/11/21 05:25 Corrected Sodium 141 mmol/L (136-145) 07/11/21 05:25 Potassium 3.3 mmol/L (3.5-5.1) L 07/11/21 05:25 Chloride 104 mmol/L (98-107) 07/11/21 05:25 Carbon Dioxide 29.5 mmol/L (21-32) 07/11/21 05:25 BUN 15 mg/dL (7-18) 07/11/21 05:25 Creatinine 0.98 mg/dL (0.70-1.30) 07/11/21 05:25 Est GFR (MDRD) Af Amer > 60 (>60) 07/11/21 05:25 Est GFR (MDRD) Non-Af > 60 (>60) 07/11/21 05:25 Glucose 180 mg/dL (65-99) H 07/11/21 05:25 POC Glucose (mg/dL) 174 mg/dL (65-99) H 07/11/21 05:17 Calcium 8.3 mg/dL (8.5-10.1) L 07/11/21 05:25 Corrected Calcium TNP 07/11/21 05:25 Magnesium 2.1 mg/dL (1.7-2.9) 07/09/21 06:25 Total Bilirubin 0.80 mg/dL (0.2-1.0) 07/11/21 05:25 AST 23 Units/L (15-37) 07/11/21 05:25 ALT 26 Units/L (12-78) 07/11/21 05:25 Alkaline Phosphatase 45 Units/L (46-116) L 07/11/21 05:25 Total Protein 6.8 g/dL (6.4-8.2) 07/11/21 05:25 Albumin 3.6 g/dL (3.4-5.0) 07/11/21 05:25 Globulin 3.2 g/dL (2.5-4.5) 07/11/21 05:25 Albumin/Globulin Ratio 1.1 Ratio (1.1-2.1) 07/11/21 05:25 Amylase 21 Units/L (25-115) L 07/10/21 05:25 Lipase 54 Units/L (73-393) L 07/10/21 05:25 Specimen Type Random urine 07/08/21 15:37 Urine Color Yellow (YELLOW) 07/08/21 15:37 Urine Appearance Clear (CLEAR) 07/08/21 15:37 Urine pH 6.0 (5.0 - 8.0) 07/08/21 15:37 Ur Specific [place] 1.015 (1.000-1.030) 07/08/21 15:37 Urine Protein 3+ (NEGATIVE) 07/08/21 15:37 Urine Glucose (UA) 4+ (NEGATIVE) 07/08/21 15:37 Urine Ketones 2+ (NEGATIVE) 07/08/21 15:37 Urine Occult Blood 4+ (NEGATIVE) 07/08/21 15:37 Urine Nitrite Negative (NEGATIVE) 07/08/21 15:37 Urine Bilirubin Negative (NEGATIVE) 07/08/21 15:37 Urine Urobilinogen Normal (NORMAL) 07/08/21 15:37 Ur Leukocyte Esterase Negative (NEGATIVE) 07/08/21 15:37 Urine RBC 0-2 /HPF (0-3) 07/08/21 15:37 Urine WBC 0-2 /HPF (0-5) 07/08/21 15:37 Ur Squamous Epith Cells Negative /HPF (NEGATIVE) 07/08/21 15:37 Urine Bacteria Negative /HPF (NEGATIVE) 07/08/21 15:37 Ur Culture Indicated? No/not indicated 07/08/21 15:37 SARS CoV-2 RNA Rapid CHANCE Negative (NEGATIVE) 07/08/21 15:49 - Plan (1) Gastroparesis Status: Acute Plan: Admit. IV hydration. IV protonix. Repeat labs in am. Clear liquids; advance diet as tolerated (2) Hypokalemia Status: Acute (3) Abdominal pain Status: Acute (4) Intractable vomiting Status: Acute (5) Hypertension Status: Acute Qualifiers: Hypertension type: unspecified Qualified Code(s): I10 - Essential (primary) hypertension
[2021-07-11 13:28] VITALS: BP 129/71
== END 2021-07-11 14:05 | disposition home or self-care (01) ==
LOC: ER 11:59 → MED/SURG 11:59
PROVIDERS: ADMIT Internal Medicine; ATTEND Internal Medicine